=== PATIENT | male | born 1995 | race Caucasian/White ===

== ENCOUNTER 2016-12-01 20:01 | Emergency (ER) | payer OTHER ==
--- NOTE | 2016-12-01 23:20 | REPUSA ---
HISTORY: Trauma TECHNIQUE: Multiple contiguous axial CT images were obtained through the facial bones at 2.5 mm slice thickness without the use of intravenous contrast. 1.25 mm axial reformations were created from whic h sagittal and coronal reformations were performed to evaluate the orbital floors. COMPARISON: None FINDINGS: Right maxillary sinus wall fractures involving the roof with approximately 3 mm depression and hernia tion of the retrobulbar fat, and more prominent right posterolateral max or sinus wall fracture with a more depression of approximately 1 cm. Diastasis of the right zygomatic suture also noted without e vidence of a displaced fracture. Remaining osseous structures and soft tissues unremarkable. Orbital compartments intact. IMPRESSION: Right maxillary sinus wall fractures involving the roof with approximately 3 mm depression and hernia tion of the retrobulbar fat, and more prominent right posterolateral max or sinus wall fracture with a more depression of approximately 1 cm. Diastasis of the right zygomatic suture also noted without e vidence of a displaced fracture. Thank you for your kind referral of this patient
[2016-12-02] MEDS ORDERED: AUGMENTIN 875 MG TAB As Ordered ONE (00:40)
--- NOTE | 2016-12-02 00:50 | EDDOCDS ---
Physician Documentation [facility] Name: Celso Harley Age: 21 yrs Sex: Male : 1995 Arrival Date: 12/01/2016 Time: 20:01 Bed PR [facility] Disposition: 12/02/16 00:38 Discharged to Home/Self Care. Impression: Fracture of malar, maxillary and zygoma bones, unspecified. - Condition is Stable. - Discharge Instructions: Nasal Fracture, Zygoma Fracture. - Prescriptions for Augmentin 875- 125 mg Oral Tablet - take 1 tablet by ORAL route every 12 hours for 10 days; 20 tablet. - Medication Reconciliation, Local Pharmacy Hours form. - [facility]; When: Tomorrow; Reason: Recheck today's complaints, Continuance of care. Follow up: Pieter Valero; When: 1 - 2 days; Reason: Recheck today's complaints, Continuance of care. Follow up: Rodrick Maxwell; When: 1 - 2 days; Reason: Recheck today's complaints, Continuance of care. Follow up: Lino Ortiz; When: As needed; Reason: Recheck today's complaints, Continuance of care. - Problem is new. - Symptoms have improved. - Notes: USE AUGMENTIN INSTRUCTED, FOLLOW UP WITH [facility] AND DR VALERO AND DR MAXWELL. IF NEEDED DR ORTIZ'S INFORMATION HAS BEEN GIVEN WELL. DO NOT BLOW YOUR NOSE OR SNEEZE THROUGH YOUR NOSE, AND ONLY COUGH THROUGH YOUR MOUTH Historical: - Allergies: No known drug Allergies; - Home Meds: 1. none - PMHx: none; - PSHx: none; - Social history: Smoking status: Patient uses tobacco products, light tobacco smoker. No barriers to communication noted, The patient speaks fluent [place], Speaks appropriately for age. - Family history: No immediate family members are acutely ill. - : The pt / caregiver states he / she is not on anticoagulants. Home medication list is obtained from the patient. - Exposure Risk Screening:: None identified. Vital Signs: 12/01 20:03 BP 155 / 66; Pulse 55; Resp 16; Temp 97; Pulse Ox 100% ; Weight 58.97 kg / 130.01 lbs; cmb Height 5 ft. 3 in. (160.02 cm); Pain 2/10; 12/02 00:44 BP 120 / 80; Pulse 56; Resp 18; Temp 98.4; Pulse Ox 99% on R/A; Pain 2/10; sls1 12/01 20:03 Body Mass Index 23.03 (58.97 kg, 160.02 cm) cmb MDM: 12/01 22:19 CT Maxilofacial W/out Contrast Ordered. EDMS 22:25 [facility] [place] Agreement was scanned into [employer] and attached to record. gjb 22:25 Financial registration complete. gjb 12/02 00:37 CT Maxilofacial W/out Contrast Reviewed. ck7 00:38 Amoxicillin-Clavulanate 875 mg 1 tabs PO once ordered. ck7 Administered Medications: 00:44 Drug: Amoxicillin-Clavulanate 1 tabs [amoxicillin 875 mg-potassium clavulanate 125 mg sls1 tablet (1 tabs)] Route: PO; Signatures: Dispatcher [employer] EDAZ Kaleb Torres RN RN cz Madiha Jaimes RN RN sls1 Stevenson Chao, RPA-C RPA-Cck7 Vadim CummingsRN RN mb9 Jessica Pickard The chart was reviewed and I authenticate all verbal orders and agree with the evaluation and treatment provided.Attachments: 12/01 22:25 [facility] Payment Agreement [facility] MTDD
--- NOTE | 2016-12-02 00:50 | EDDOCDS ---
Nurse's Notes [facility] Name: Celso Harley Age: 21 yrs Sex: Male : 1995 Arrival Date: 12/01/2016 Time: 20:01 Bed PR [facility] Diagnosis: Fracture of malar, maxillary and zygoma bones, unspecified Presentation: 12/01 20:08 Presenting complaint: Patient states: was struck with elbow playing basketball week ago cz Wednesday struck right cheek states no feeling to same area question of fracture seen at [facility] sent here for further evaluation. Adult Sepsis Screening: The patient does not have new or worsening altered mentation. Patient's respiratory rate is less than 22. Systolic blood pressure is greater than 100. Patient has a qSOFA score of 0- Negative Sepsis Screen. Suicide/Homicide risk assessment- the patient denies having any suicidal and/or homicidal ideations and does not present with any other emotional, behavioral or mental health complaints. 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 Transition of care: patient was not received from another setting of care. 20:08 Acuity: PEYTON Level 5 cz 20:08 Method Of Arrival: Walkin/Carried/Asstd cz Triage Assessment: 20:10 General: Appears in no apparent distress. Pain: Denies pain. Pt Declines HIV testing. cz Historical: - Allergies: No known drug Allergies; - Home Meds: 1. none - PMHx: none; - PSHx: none; - Social history: Smoking status: Patient uses tobacco products, light tobacco smoker. No barriers to communication noted, The patient speaks fluent Armenian, Speaks appropriately for age. - Family history: No immediate family members are acutely ill. - : The pt / caregiver states he / she is not on anticoagulants. Home medication list is obtained from the patient. - Exposure Risk Screening:: None identified. Screenin:01 Screening information is obtained from the patient. Fall risk: No risks identified. mb9 Assistance ADL's: requires no assistance with activities of daily living. Abuse/DV Screen: The patient / caregiver reports he/she is: not in a situation that causes fear, pain or injury. Nutritional screening: No deficits noted. Advance Directives: There is no active DNR order. home support is adequate. Assessment: 22:01 General: Appears in no apparent distress, Behavior is fussy, inappropriate for age. mb9 Respiratory: Airway is patent Respiratory effort is even, unlabored. 23:43 General: Appears in no apparent distress, Behavior is cooperative, ambulates with af2 upright, steady gait. rr even and unlabored. lac noted to right eye. updated regarding plan of care.. 12/02 00:44 Reassessment: Patient appears in no apparent distress at this time. Patient states sls1 feeling better. Neurological: Level of Consciousness is awake, alert. Respiratory: No deficits noted. 00:48 General: Discharge instructions reviewed with pt including medication use, follow up sls1 care and no blowing, or sneezing through mouth. Pt verbalizes understanding d/c home with escort. Vital Signs: 12/01 20:03 BP 155 / 66; Pulse 55; Resp 16; Temp 97; Pulse Ox 100% ; Weight 58.97 kg; Height 5 ft. cmb 3 in. (160.02 cm); Pain 2/10; 12/02 00:44 BP 120 / 80; Pulse 56; Resp 18; Temp 98.4; Pulse Ox 99% on R/A; Pain 2/10; sls1 12/01 20:03 Body Mass Index 23.03 (58.97 kg, 160.02 cm) cmb Vitals: 12/01 20:03 Log In Time: December 01, 2016 at 20:03. cmb ED Course: 20:03 Patient visited by Caitlin Bedolla. cmb 20:03 [facility], Luís Cummings is Private Physician. cmb 20:03 Patient moved to Waiting cmb 20:04 Patient moved to Pre RCE cmb 20:10 Triage Initiated cz 22:00 Patient moved to Triage 2 sls1 22:01 The patient / caregiver is instructed regarding the plan of care and ED course. mb9 22:01 No IV's were initiated during this patient's visit. No procedures done that require mb9 assistance. 22:04 Stevenson Chao RPA-C is PHCP. ck7 22:04 Sajan Harrison DO is Attending Physician. ck7 22:08 Patient visited by Stevenson Chao RPA-C. ck7 22:18 Patient moved to 4 mb9 22:25 [facility] Payment Agreement was scanned into [employer] and attached to record. gjb 23:07 Patient visited by Stevenson Chao RPA-C. ck7 23:37 Patient visited by Stevenson Chao RPA-C. ck7 23:37 Patient moved to PR af2 23:44 Patient visited by Elizabeth Michael RN. af2 23:51 Patient name changed from Celso\S\\S\Cricket\S\ to Celso\S\ \S\Cricket. EDMS 18 00:15 CT Maxilofacial W/out Contrast Returned. EDMS 00:16 Patient visited by Elizabeth Michael RN. af2 00:38 [facility]. ck7 00:41 Pieter Valero is Referral Physician. ck7 00:41 Rodrick Maxwell is Referral Physician. ck7 00:41 Lino Ortiz is Referral Physician. ck7 00:45 Patient visited by Madiha Jaimes RN. sls1 Administered Medications: 00:44 Drug: Amoxicillin-Clavulanate 1 tabs [amoxicillin 875 mg-potassium clavulanate 125 mg sls1 tablet (1 tabs)] Route: PO; Order Results: Radiology Order: CT Maxilofacial W/out Contrast Test: CT Maxilofacial W/out Contrast REASON FOR EXAMINATION: R/O RIGHT FACIAL/SINUS FX; ; HISTORY: Trauma; TECHNIQUE: Multiple contiguous axial CT images were obtained through the facial bones at 2.5 mm slice; thickness without the use of intravenous contrast. 1.25 mm axial reformations were created from whic; h sagittal and coronal reformations were performed to evaluate the orbital floors.; COMPARISON: None; FINDINGS:; Right maxillary sinus wall fractures involving the roof with approximately 3 mm depression and hernia; tion of the retrobulbar fat, and more prominent right posterolateral max or sinus wall fracture with; a more depression of approximately 1 cm. Diastasis of the right zygomatic suture also noted without e; vidence of a displaced fracture.; Remaining osseous structures and soft tissues unremarkable. Orbital compartments intact.; IMPRESSION:; Right maxillary sinus wall fractures involving the roof with approximately 3 mm depression and hernia; tion of the retrobulbar fat, and more prominent right posterolateral max or sinus wall fracture with; a more depression of approximately 1 cm. Diastasis of the right zygomatic suture also noted without e; vidence of a displaced fracture.; Thank you for your kind referral of this patient; ; ; Outcome: 00:38 Discharge ordered by Provider. ck7 00:44 CT Study completed. sls1 00:49 Discharge Assessment: Patient awake, alert and oriented x 3. No cognitive and/or sls1 functional deficits noted. Patient verbalized understanding of disposition instructions. patient administered narcotics - no. The following High Risk Discharge criteria are identified: None. Discharged to home ambulatory. Condition: stable. Discharge instructions given to patient, Instructed on discharge instructions, follow up and referral plans. medication usage. Property :Personal belongings accompany Pt. 00:49 Patient left the ED. sls1 Signatures: Dispatcher [employer] EDMS Kaleb Torres, RN RACHANA cz Madiha Jaimes RN RN sls1 Caitlin Bedolla Christopher, RPA-C RPA-Cck7 Vadim CummingsRN RN mb9 Elizabeth MichaelRN RN af2 Jessica Pickard MTDD
--- NOTE | 2016-12-04 01:50 | EDDOCDS ---
Physician Documentation [facility] Name: Celso Harley Age: 21 yrs Sex: Male : 1995 Arrival Date: 12/01/2016 Time: 20:01 Bed PR [facility] Disposition: 12/02/16 00:38 Discharged to Home/Self Care. Impression: Fracture of malar, maxillary and zygoma bones, unspecified. - Condition is Stable. - Discharge Instructions: Nasal Fracture, Zygoma Fracture. - Prescriptions for Augmentin 875- 125 mg Oral Tablet - take 1 tablet by ORAL route every 12 hours for 10 days; 20 tablet. - Medication Reconciliation, Local Pharmacy Hours form. - [facility]; When: Tomorrow; Reason: Recheck today's complaints, Continuance of care. Follow up: Pieter Valero; When: 1 - 2 days; Reason: Recheck today's complaints, Continuance of care. Follow up: Rodrick Maxwell; When: 1 - 2 days; Reason: Recheck today's complaints, Continuance of care. Follow up: Lino Ortiz; When: As needed; Reason: Recheck today's complaints, Continuance of care. - Problem is new. - Symptoms have improved. - Notes: USE AUGMENTIN INSTRUCTED, FOLLOW UP WITH [facility] AND DR VALERO AND DR MAXWELL. IF NEEDED DR ORTIZ'S INFORMATION HAS BEEN GIVEN WELL. DO NOT BLOW YOUR NOSE OR SNEEZE THROUGH YOUR NOSE, AND ONLY COUGH THROUGH YOUR MOUTH Historical: - Allergies: No known drug Allergies; - Home Meds: 1. none - PMHx: none; - PSHx: none; - Social history: Smoking status: Patient uses tobacco products, light tobacco smoker. No barriers to communication noted, The patient speaks fluent [place] Islander, Speaks appropriately for age. - Family history: No immediate family members are acutely ill. - : The pt / caregiver states he / she is not on anticoagulants. Home medication list is obtained from the patient. - Exposure Risk Screening:: None identified. Vital Signs: 12/01 20:03 BP 155 / 66; Pulse 55; Resp 16; Temp 97; Pulse Ox 100% ; Weight 58.97 kg / 130.01 lbs; cmb Height 5 ft. 3 in. (160.02 cm); Pain 2/10; 12/02 00:44 BP 120 / 80; Pulse 56; Resp 18; Temp 98.4; Pulse Ox 99% on R/A; Pain 2/10; sls1 12/01 20:03 Body Mass Index 23.03 (58.97 kg, 160.02 cm) cmb MDM: 12/01 22:19 CT Maxilofacial W/out Contrast Ordered. EDMS 22: [facility] [place] Agreement was scanned into [employer] and attached to record. gjb 22: Financial registration complete. gjb 12/02 00:37 CT Maxilofacial W/out Contrast Reviewed. ck7 00:38 Amoxicillin-Clavulanate 875 mg 1 tabs PO once ordered. ck7 11:00 T-Sheet-- Draft Copy was scanned into [employer] and attached to record. gb Administered Medications: 00:44 Drug: Amoxicillin-Clavulanate 1 tabs [amoxicillin 875 mg-potassium clavulanate 125 mg sls1 tablet (1 tabs)] Route: PO; Signatures: Dispatcher [employer] EDMS Kaleb Torres, RN RN cz Josie Craig, Reg Reg gb Madiha Jaimes RN RN sls1 Stevenson Chao, RPA-C RPA-Cck7 Vadim Cummings,RN RN mb9 Jessica Pickard The chart was reviewed and I authenticate all verbal orders and agree with the evaluation and treatment provided.Attachments: 12/01 22: [facility] [place] Agreement gjb 12/02 11:00 T-Sheet-- Draft Copy gb Chart Complete MTDD
--- NOTE | 2016-12-04 01:50 | EDDOCDS ---
Nurse's Notes [facility] Name: Celso Harley Age: 21 yrs Sex: Male : 1995 Arrival Date: 12/01/2016 Time: 20:01 Bed PR [facility] Fracture of malar, maxillary and zygoma bones, unspecified Presentation: 12/01 20:08 Presenting complaint: Patient states: was struck with elbow playing basketball week ago cz Wednesday struck right cheek states no feeling to same area question of fracture seen at [facility] sent here for further evaluation. Adult Sepsis Screening: The patient does not have new or worsening altered mentation. Patient's respiratory rate is less than 22. Systolic blood pressure is greater than 100. Patient has a qSOFA score of 0- Negative Sepsis Screen. Suicide/Homicide risk assessment- the patient denies having any suicidal and/or homicidal ideations and does not present with any other emotional, behavioral or mental health complaints. 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 Transition of care: patient was not received from another setting of care. 20:08 Acuity: PEYTON Level 5 cz 20:08 Method Of Arrival: Walkin/Carried/Asstd cz Triage Assessment: 20:10 General: Appears in no apparent distress. Pain: Denies pain. Pt Declines HIV testing. cz Historical: - Allergies: No known drug Allergies; - Home Meds: 1. none - PMHx: none; - PSHx: none; - Social history: Smoking status: Patient uses tobacco products, light tobacco smoker. No barriers to communication noted, The patient speaks fluent Armenian, Speaks appropriately for age. - Family history: No immediate family members are acutely ill. - : The pt / caregiver states he / she is not on anticoagulants. Home medication list is obtained from the patient. - Exposure Risk Screening:: None identified. Screenin:01 Screening information is obtained from the patient. Fall risk: No risks identified. mb9 Assistance ADL's: requires no assistance with activities of daily living. Abuse/DV Screen: The patient / caregiver reports he/she is: not in a situation that causes fear, pain or injury. Nutritional screening: No deficits noted. Advance Directives: There is no active DNR order. home support is adequate. Assessment: 22:01 General: Appears in no apparent distress, Behavior is fussy, inappropriate for age. mb9 Respiratory: Airway is patent Respiratory effort is even, unlabored. 23:43 General: Appears in no apparent distress, Behavior is cooperative, ambulates with af2 upright, steady gait. rr even and unlabored. lac noted to right eye. updated regarding plan of care.. 12/02 00:44 Reassessment: Patient appears in no apparent distress at this time. Patient states sls1 feeling better. Neurological: Level of Consciousness is awake, alert. Respiratory: No deficits noted. 00:48 General: Discharge instructions reviewed with pt including medication use, follow up sls1 care and no blowing, or sneezing through mouth. Pt verbalizes understanding d/c home with escort. Vital Signs: 12/01 20:03 BP 155 / 66; Pulse 55; Resp 16; Temp 97; Pulse Ox 100% ; Weight 58.97 kg; Height 5 ft. cmb 3 in. (160.02 cm); Pain 2/10; 12/02 00:44 BP 120 / 80; Pulse 56; Resp 18; Temp 98.4; Pulse Ox 99% on R/A; Pain 2/10; sls1 12/01 20:03 Body Mass Index 23.03 (58.97 kg, 160.02 cm) cmb Vitals: 12/01 20:03 Log In Time: December 01, 2016 at 20:03. cmb ED Course: 20:03 Patient visited by Caitlin Bedolla. cmb 20:03 [facility], Luís Cummings is Private Physician. cmb 20:03 Patient moved to Waiting cmb 20:04 Patient moved to Pre RCE cmb 20:10 Triage Initiated cz 22:00 Patient moved to Triage 2 sls1 22:01 The patient / caregiver is instructed regarding the plan of care and ED course. mb9 22:01 No IV's were initiated during this patient's visit. No procedures done that require mb9 assistance. 22:04 Stevenson Chao RPA-C is PHCP. ck7 22:04 Sajan Harrison DO is Attending Physician. ck7 22:08 Patient visited by Stevenson Chao RPA-C. ck7 22:18 Patient moved to 4 mb9 22:25 [facility]END[facility] Payment Agreement was scanned into [employer] and attached to record. gjb 23:07 Patient visited by Stevenson Chao RPA-C. ck7 23:37 Patient visited by Stevenson Chao RPA-C. ck7 23:37 Patient moved to PR af2 23:44 Patient visited by Elizabeth Michael RN. af2 23:51 Patient name changed from Celso\S\\S\Cricket\S\ to Celso\S\ \S\Cricket. EDMS 12/02 00:15 CT Maxilofacial W/out Contrast Returned. EDMS 00:16 Patient visited by Elizabeth Michael RN. af2 00:38 [facility]. ck7 00:41 Pieter Valero is Referral Physician. ck7 00:41 Rodrick Maxwell is Referral Physician. ck7 00:41 Lino Ortiz is Referral Physician. ck7 00:45 Patient visited by Madiha Jaimes RN. sls1 11:00 T-Sheet-- Draft Copy was scanned into [employer] and attached to record. gb Administered Medications: 00:44 Drug: Amoxicillin-Clavulanate 1 tabs [amoxicillin 875 mg-potassium clavulanate 125 mg sls1 tablet (1 tabs)] Route: PO; Order Results: Radiology Order: CT Maxilofacial W/out Contrast Test: CT Maxilofacial W/out Contrast REASON FOR EXAMINATION: R/O RIGHT FACIAL/SINUS FX; ; HISTORY: Trauma; TECHNIQUE: Multiple contiguous axial CT images were obtained through the facial bones at 2.5 mm slice; thickness without the use of intravenous contrast. 1.25 mm axial reformations were created from whic; h sagittal and coronal reformations were performed to evaluate the orbital floors.; COMPARISON: None; FINDINGS:; Right maxillary sinus wall fractures involving the roof with approximately 3 mm depression and hernia; tion of the retrobulbar fat, and more prominent right posterolateral max or sinus wall fracture with; a more depression of approximately 1 cm. Diastasis of the right zygomatic suture also noted without e; vidence of a displaced fracture.; Remaining osseous structures and soft tissues unremarkable. Orbital compartments intact.; IMPRESSION:; Right maxillary sinus wall fractures involving the roof with approximately 3 mm depression and hernia; tion of the retrobulbar fat, and more prominent right posterolateral max or sinus wall fracture with; a more depression of approximately 1 cm. Diastasis of the right zygomatic suture also noted without e; vidence of a displaced fracture.; Thank you for your kind referral of this patient; ; ; Outcome: 00:38 Discharge ordered by Provider. ck7 00:44 CT Study completed. [facility]1 00:49 Discharge Assessment: Patient awake, alert and oriented x 3. No cognitive and/or sls1 functional deficits noted. Patient verbalized understanding of disposition instructions. patient administered narcotics - no. The following High Risk Discharge criteria are identified: None. Discharged to home ambulatory. Condition: stable. Discharge instructions given to patient, Instructed on discharge instructions, follow up and referral plans. medication usage. Property :Personal belongings accompany Pt. 00:49 Patient left the ED. sls1 Signatures: Dispatcher [employer] EDMS Kaleb Torres RN RN cz Joise Craig, Madiha Daly RN RN sls1 Caitlin Bedolla Christopher, RPA-C RPA-Cck7 Vadim CummingsRN RN mb9 Elizabeth MichaelRN RN af2 Jessica Pickard Chart Complete MTDD
--- NOTE | 2016-12-04 01:50 | EDDOCDS ---
Physician Documentation [facility] Name: Celso Harley Age: 21 yrs Sex: Male : 1995 Arrival Date: 12/01/2016 Time: 20:01 Bed PR [facility] Disposition: 12/02/16 00:38 Discharged to Home/Self Care. Impression: Fracture of malar, maxillary and zygoma bones, unspecified. - Condition is Stable. - Discharge Instructions: Nasal Fracture, Zygoma Fracture. - Prescriptions for Augmentin 875- 125 mg Oral Tablet - take 1 tablet by ORAL route every 12 hours for 10 days; 20 tablet. - Medication Reconciliation, Local Pharmacy Hours form. - [facility]; When: Tomorrow; Reason: Recheck today's complaints, Continuance of care. Follow up: Pieter Valero; When: 1 - 2 days; Reason: Recheck today's complaints, Continuance of care. Follow up: Rodrick Maxwell; When: 1 - 2 days; Reason: Recheck today's complaints, Continuance of care. Follow up: Lino Ortiz; When: As needed; Reason: Recheck today's complaints, Continuance of care. - Problem is new. - Symptoms have improved. - Notes: USE AUGMENTIN INSTRUCTED, FOLLOW UP WITH [facility] AND DR VALERO AND DR MAXWELL. IF NEEDED DR ORTIZ'S INFORMATION HAS BEEN GIVEN WELL. DO NOT BLOW YOUR NOSE OR SNEEZE THROUGH YOUR NOSE, AND ONLY COUGH THROUGH YOUR MOUTH Historical: - Allergies: No known drug Allergies; - Home Meds: 1. none - PMHx: none; - PSHx: none; - Social history: Smoking status: Patient uses tobacco products, light tobacco smoker. No barriers to communication noted, The patient speaks fluent Bermudian, Speaks appropriately for age. - Family history: No immediate family members are acutely ill. - : The pt / caregiver states he / she is not on anticoagulants. Home medication list is obtained from the patient. - Exposure Risk Screening:: None identified. Vital Signs: 12/01 20:03 BP 155 / 66; Pulse 55; Resp 16; Temp 97; Pulse Ox 100% ; Weight 58.97 kg / 130.01 lbs; cmb Height 5 ft. 3 in. (160.02 cm); Pain 2/10; 12/02 00:44 BP 120 / 80; Pulse 56; Resp 18; Temp 98.4; Pulse Ox 99% on R/A; Pain 2/10; sls1 12/01 20:03 Body Mass Index 23.03 (58.97 kg, 160.02 cm) cmb MDM: 12/01 22:19 CT Maxilofacial W/out Contrast Ordered. EDMS 22: [facility] Payment Agreement was scanned into [employer] and attached to record. gjb 22: Financial registration complete. gjb 12/02 00:37 CT Maxilofacial W/out Contrast Reviewed. ck7 00:38 Amoxicillin-Clavulanate 875 mg 1 tabs PO once ordered. ck7 11:00 T-Sheet-- Draft Copy was scanned into [employer] and attached to record. gb Administered Medications: 00:44 Drug: Amoxicillin-Clavulanate 1 tabs [amoxicillin 875 mg-potassium clavulanate 125 mg sls1 tablet (1 tabs)] Route: PO; Signatures: Dispatcher [employer] EDMS Kaleb Torres, RN RN cz Josie Craig, Reg Reg gb Madiha Jaimes RN RN sls1 Stevenson Chao, RPA-C [id number] Vadim Cummings,RN RN mb9 Jessica Pickard The chart was reviewed and I authenticate all verbal orders and agree with the evaluation and treatment provided.Attachments: 12/01 22: [facility] Payment Agreement gjb 12/02 11:00 T-Sheet-- Draft Copy gb Chart Complete MTDD
== END 2016-12-02 00:49 | disposition home or self-care (01) ==
LOC: M ED 20:01
DX: S02.400A Malar fracture, unspecified side, initial encounter for closed fracture (principal); W50.0XXA Accidental hit or strike by another person, initial encounter; Y92.89 Other specified places as the place of occurrence of the external cause; Y93.67 Activity, basketball; Y99.0 Civilian activity done for income or pay; F17.210 Nicotine dependence, cigarettes, uncomplicated

== ENCOUNTER → 2016-12-01 | Outpatient (CLI) | payer OTHER ==
--- NOTE | 2016-12-01 19:22 | REP ---
FACIAL BONES: SIX VIEWS: HISTORY: Injury. There is a possible fracture of the floor of the right orbit. Minimal mucosal thickening is present in the right maxillary sinus. The remaining sinuses are clear. IMPRESSION: There is a possible fracture of the floor of the right orbit. Maxillofacial CT is recommended for further evaluation. Signed by Artur Toure MD 12/01/2016 07:28 P
== END ==
LOC: M LRY 17:59
PROVIDERS: ATTEND Nurse Practitioner Family
DX: S09.93XA Unspecified injury of face, initial encounter (principal); X58.XXXA Exposure to other specified factors, initial encounter; Y92.89 Other specified places as the place of occurrence of the external cause; Y93.89 Activity, other specified; Y99.8 Other external cause status